=== PATIENT | male | born 1975 | race Caucasian/White ===

== ENCOUNTER 2016-09-08 17:09 | Emergency (ER) | payer MEDICAID, OTHER ==
[2016-09-08 19:06] VITALS: BP 126/82
[2016-09-08] MEDS ORDERED: Diphtheria,Pertussis(Acell),Tetanus Vaccine 0.5 ML SDV IM ONE (19:41)
--- NOTE | 2016-09-08 19:46 | EDM.PDOC ---
ED HPI Skin/Rash - General Chief Complaint: Laceration Stated Complaint: CUT FINGER Time Seen by Provider: 09/08/16 19:38 Source: Reports: Patient History Limitations: Reports: No limitations - History of Present Illness INITIAL COMMENTS - FREE TEXT/NARRATIVE: History of present illness: [This patient has a left ring finger sustained a small laceration to the tip of his finger. He is tissue loss with intervention of the very tip of his finger. This did not involve his nail. No other injuries and he does not know when his last tetanus was] Review of systems: As per history of present illness and below otherwise all systems reviewed and negative. Past medical history: As per history of present illness and as reviewed below otherwise noncontributory. Surgical history: As per history of present illness and as reviewed below otherwise noncontributory. Social history: No reported history of drug or alcohol abuse. Family history: As per history of present illness and as reviewed below otherwise noncontributory. Physical exam: HEENT: Atraumatic, normocephalic, pupils reactive, negative for conjunctival pallor or scleral icterus, mucous membranes moist, throat clear, neck supple, nontender, trachea midline. Lungs: Clear to auscultation, breath sounds equal bilaterally, chest nontender. Heart: S1S2, regular, negative for clicks, rubs, or JVD. Abdomen: Soft, nondistended, nontender. Negative for masses or hepatosplenomegaly. Negative for costovertebral tenderness. Pelvis: Stable nontender. Genitourinary: Deferred. Rectal: Deferred. Extremities: He has loss of Dorian very tip of his left ring finger with complete loss of tissue. This does not involve his nail Neuro: Awake, alert, oriented. Cranial nerves II through XII unremarkable. Cerebellum unremarkable. Motor and sensory unremarkable throughout. Exam nonfocal. Diagnostics: [] Therapeutics: [This was dressed with antibiotic ointment and a Band-Aid.] Impression: [A bulging of the tip of the left ring finger] Plan: [This can be treated with antibiotic ointment and bandaid until it heals up.] Definitive disposition and diagnosis as appropriate pending reevaluation and review of above. - Related Data Allergies Allergy/AdvReac Type Severity Reaction Status Date / Time No Known Allergies Allergy Verified 09/08/16 19:06 Home Meds: Ambulatory Orders Medication Instructions Recorded Confirmed FLUoxetine [PROzac] 40 mg PO DAILY 01/15/15 09/08/16 Multivitamin with Minerals 1 tab PO DAILY 11/16/15 09/08/16 [Multiple Vitamin] busPIRone [Buspar] 10 mg PO BID 02/18/16 09/08/16 traZODone 50 mg PO BEDTIME 02/18/16 09/08/16 Past Medical History - Past Health History Medical/Surgical History: Denies Medical/Surgical History HEENT History: Reports: Allergic rhinitis, Sinusitis Other HEENT History: frequent strep throat and ear infections Cardiovascular History: Reports: Other (see below) Other Cardiovascular History: recurrent chest pains with negative stress test Gastrointestinal History: Reports: Chronic diarrhea, Hemorrhoids, Irritable bowel syndrome Musculoskeletal History: Reports: Back pain, chronic, Fracture, Other (see below ) Other Musculoskeletal History: carpal tunnel release bilateral. fingers, plantar facitis Psychiatric History: Reports: Anxiety, Depression, Panic attack Endocrine/Metabolic History: Reports: Obesity/BMI 30+ - Infectious Disease History Infectious Disease History: Reports: Chicken pox - Past Surgical History HEENT Surgical History: Reports: Oral surgery Cardiovascular Surgical History: Reports: None GI Surgical History: Reports: None Endocrine Surgical History: Reports: None Musculoskeletal Surgical History: Reports: Carpal tunnel Social & Family History - Family History Family Medical History: Unobtainable - Tobacco Use Smoking Status *Q: Never Smoker Years of Tobacco use: 15 Packs/Tins Daily: 4 Used Tobacco, but Quit: Yes Month Tobacco Last Used: November Second Hand Smoke Exposure: No - Alcohol Use Days Per Week of Alcohol Use: 0 - Recreational Drug Use Recreational Drug Use: No Drug Use in Last 12 Months: No Recreational Drug Type: Reports: Marijuana/Hashish Recreational Drug Use Frequency: Weekly ED ROS GENERAL - Review of Systems Review Of Systems: ROS reveals no pertinent complaints other than HPI. ED EXAM, SKIN/RASH Exam: See Below Course - Vital Signs Last Recorded V/S: Last Vital Signs Temp 37 C 09/08/16 19:03 Pulse 61 09/08/16 19:03 Resp 14 09/08/16 19:03 BP 126/82 09/08/16 19:03 Pulse Ox 95 09/08/16 19:03 - Orders/Labs/Meds Orders: Active Orders 24 hr Category Date Time Status Vaccines to be Administered [RC] PER UNIT ROUTINE Care 09/08/16 19:41 Ordered Diphth,Pertuss(Acell),Tet Vac [Adacel] Med 09/08/16 19:41 Once 0.5 ml IM .ONCE ONE Departure - Departure Time of Disposition: 19:44 Disposition: Home, Self-Care 01 Condition: good Clinical Impression: Avulsion of skin of finger Qualifiers: Encounter type: initial encounter Qualified Code(s): S61.209A - Unspecified open wound of unspecified finger without damage to nail, initial encounter Forms: ED Department Discharge Additional Instructions: Continue to use antibiotic ointment and Band-Aids until this visit. Followup with his doctor if any problems. - My Orders Last 24 Hours: My Active Orders 09/08/16 19:41 Vaccines to be Administered [RC] PER UNIT ROUTINE Diphth,Pertuss(Acell),Tet Vac [Adacel] 0.5 ml IM .ONCE ONE - Assessment/Plan Last 24 Hours: My Active Orders 09/08/16 19:41 Vaccines to be Administered [RC] PER UNIT ROUTINE Diphth,Pertuss(Acell),Tet Vac [Adacel] 0.5 ml IM .ONCE ONE
== END 2016-09-08 19:58 | disposition home or self-care (01) ==
LOC: JP.ED 17:09
DX: S61.205A Unspecified open wound of left ring finger without damage to nail, initial encounter (principal); F41.0 Panic disorder [episodic paroxysmal anxiety]; F32.9 Major depressive disorder, single episode, unspecified; E66.9 Obesity, unspecified; Z68.36 Body mass index [BMI] 36.0-36.9, adult; Z23 Encounter for immunization; Z98.890 Other specified postprocedural states; Z79.899 Other long term (current) drug therapy; X58.XXXA Exposure to other specified factors, initial encounter
CPT/HCPCS: 90471; 90715; 99282; 99283-25

== ENCOUNTER 2016-11-06 16:36 | Emergency (ER) | payer MEDICAID ==
[2016-11-06 16:43] VITALS: BP 134/77
[2016-11-06] MEDS ORDERED: Silver Nitrate Applicator Each TOP ONE (16:59)
--- NOTE | 2016-11-06 17:02 | EDM.PDOC ---
ED HPI GENERAL MEDICAL PROBLEM - General Chief Complaint: Laceration Stated Complaint: CUT FINGER IN ROUTER Time Seen by Provider: 11/06/16 16:54 Source of Information: Reports: Patient, RN Notes Reviewed History Limitations: Reports: No Limitations - History of Present Illness INITIAL COMMENTS - FREE TEXT/NARRATIVE: 41-year-old gentleman presents emergency department today complaint of laceration to to his middle finger on his left hand, he accidentally was cut by a route or on the distal tip of the finger tetanus was last year Left Hand Pain Score (Numeric/FACES): 10 - Related Data Allergies Allergy/AdvReac Type Severity Reaction Status Date / Time No Known Allergies Allergy Verified 09/08/16 19:06 Home Meds: Home Meds FLUoxetine [PROzac] 40 mg PO DAILY 01/15/15 [History] Multivitamin with Minerals [Multiple Vitamin] 1 tab PO DAILY 11/16/15 [History] busPIRone [Buspar] 10 mg PO BID 02/18/16 [History] traZODone 50 mg PO BEDTIME 02/18/16 [History] Past Medical History HEENT History: Reports: Allergic Rhinitis, Sinusitis Other HEENT History: frequent strep throat and ear infections Cardiovascular History: Reports: Other (See Below) Other Cardiovascular History: recurrent chest pains with negative stress test Gastrointestinal History: Reports: Chronic Diarrhea, Hemorrhoids, Irritable Bowel Syndrome Musculoskeletal History: Reports: Back Pain, Chronic, Fracture, Other (See Below ) Other Musculoskeletal History: carpal tunnel release bilateral. fingers, plantar facitis Psychiatric History: Reports: Anxiety, Depression, Panic Attack Endocrine/Metabolic History: Reports: Obesity/BMI 30+ - Infectious Disease History Infectious Disease History: Reports: Chicken Pox - Past Surgical History HEENT Surgical History: Reports: Oral Surgery Endocrine Surgical History: Reports: None Musculoskeletal Surgical History: Reports: Carpal Tunnel Social & Family History - Family History Family Medical History: Unobtainable - Tobacco Use Smoking Status *Q: Never Smoker Years of Tobacco use: 15 Packs/Tins Daily: 4 Used Tobacco, but Quit: Yes Month Tobacco Last Used: November Second Hand Smoke Exposure: No - Caffeine Use Caffeine Use: Reports: None - Alcohol Use Days Per Week of Alcohol Use: 0 - Recreational Drug Use Recreational Drug Use: No Drug Use in Last 12 Months: No Recreational Drug Type: Reports: Marijuana/Hashish Recreational Drug Use Frequency: Weekly ED ROS GENERAL - Review of Systems Review Of Systems: See Below Musculoskeletal: Reports: Other (Finger pain) Skin: Reports: Wound (Wound) ED EXAM, SKIN/RASH Exam: See Below Text/Narrative:: Examination of the right hand he has full range of motion of all digits radial pulses 2+ there is a portion of nail and skin missing on the distal aspect of digit #3 left hand sensation is intact Course - Vital Signs Last Recorded V/S: Last Vital Signs Temp 98.2 F 11/06/16 16:42 Pulse 81 11/06/16 16:42 Resp 16 11/06/16 16:42 BP 134/77 11/06/16 16:42 Pulse Ox 99 11/06/16 16:42 - Orders/Labs/Meds Orders: Active Orders 24 hr Category Date Time Status Bacitracin [Bacitracin Oint 1 GM] Med 11/06/16 17:50 Once 1 dose TOP ONETIME ONE Meds: Medications Discontinued Medications Generic Name Dose Route Start Last Admin Trade Name Freq PRN Reason Stop Dose Admin Lidocaine HCl 5 ml 11/06/16 16:52 11/06/16 17:03 Xylocaine-Mpf 1% INJECT 11/06/16 16:53 5 ml ONETIME ONE Administration Silver Nitrate 1 each 11/06/16 16:59 11/06/16 17:03 Silver Nitrate TOP 11/06/16 17:00 1 each ONETIME ONE Administration Departure - Departure Time of Disposition: 17:52 Disposition: Home, Self-Care 01 Condition: good (No) Clinical Impression: Avulsion of skin of finger Qualifiers: Encounter type: initial encounter Qualified Code(s): S61.209A - Unspecified open wound of unspecified finger without damage to nail, initial encounter - Discharge Information Forms: ED Department Discharge Additional Instructions: Please followup with your primary care provider in 3-5 days if not better, please call return to the emergency department with worsening of symptoms. - My Orders Last 24 Hours: My Active Orders 11/06/16 17:50 Bacitracin [Bacitracin Oint 1 GM] 1 dose TOP ONETIME ONE - Assessment/Plan Last 24 Hours: My Active Orders 11/06/16 17:50 Bacitracin [Bacitracin Oint 1 GM] 1 dose TOP ONETIME ONE Plan: Assessment Acuity = acute Site and laterality = finger laceration digit #3 distal tip left hand Etiology = secondary to trauma with a woodworking router Manifestations = none Location of injury = home Lab values = none Plan Wound was cleansed with copious amounts of Hibiclens and tap water wound was still oozing this was controlled with silver nitrate wound was then dressed with bacitracin have him follow up with his primary care as needed tetanus was within last year Patient was in agreement with the plan all questions were answered, they were instructed to return to the emergency department or call for worsening symptoms. This note was dictated using [employer] voice recognition software please call with any questions.
[2016-11-06] MEDS ORDERED: Bacitracin Oint 1 GM U/D Packet TOP ONE (17:50)
== END 2016-11-06 18:03 | disposition home or self-care (01) ==
LOC: JP.ED 16:36
DX: S61.203A Unspecified open wound of left middle finger without damage to nail, initial encounter (principal); Y29.XXXA Contact with blunt object, undetermined intent, initial encounter
CPT/HCPCS: 99282; 99283

== ENCOUNTER 2019-03-08 06:12 | Day surgery (SDC) | payer MEDICAID ==
[2019-03-08] MEDS ORDERED: Sodium Chloride 0.9% 1,000 ML IV SCH (07:00)
[2019-03-08] MEDS ORDERED: fentaNYL 100 MCG/2 ML SDV ONE (07:50)
[2019-03-08] MEDS ORDERED: Midazolam 1 MG/ML 2 ML SDV ONE (07:50)
[2019-03-08] MEDS ORDERED: Propofol 200 MG/20 ML SDV ONE (07:50)
[2019-03-08 08:57] VITALS: PULSE 64
[2019-03-08 08:58] VITALS: BP 99/71
--- NOTE | 2019-03-09 07:43 | OR ---
DATE OF PROCEDURE: 03/08/2019 SURGEON: Ayan Crenshaw MD PROCEDURE: Colonoscopy. FINDINGS: Normal colonoscopy. PREOPERATIVE DIAGNOSIS: Screening colonoscopy/history of colon polyps. POSTOPERATIVE DIAGNOSIS: Screening colonoscopy/history of colon polyps. RISKS: Risks, benefits, alternatives, and limitations including, but not limited to infection, bleeding, and perforation were explained to the patient, and he wished to proceed. PROCEDURE IN DETAIL: The patient was placed in left lateral decubitus position. Digital rectal exam was performed without abnormality. The scope was introduced and advanced atraumatically to the ileocecal valve. The scope was brought back through the ascending, transverse, descending colon, and retroflexed. No evidence of old or new blood. No masses. No polyps. No evidence of colitis or abnormality. No abnormalities on retroflexed. The patient tolerated the procedure well. Ayan Crenshaw MD /[id number]
== END 2019-03-08 09:32 | disposition home or self-care (01) ==
LOC: JP.SDS 06:12
PROVIDERS: ATTEND Surgery
DX: Z12.11 Encounter for screening for malignant neoplasm of colon (principal)
CPT/HCPCS: 45378; J2250; J2704; J3010; J7030

== ENCOUNTER 2024-02-07 16:55 | Emergency (ER) | payer BC, MEDICAID ==
[2024-02-07] MEDS ORDERED: Sodium Chloride 0.9% 10 ML Syringe FLUSH PRN (18:10)
[2024-02-07] MEDS: Sodium Chloride 0.9% 1,000 ML IV STA (18:32)
[2024-02-07 18:34] LABS: BASOPHILS ABSOLUTE AUTO 0.07 K/uL (0.00-0.10); BASOPHILS PERCENT AUTO 0.7 % (0.1-1.3); EOSINOPHILS ABSOLUTE AUTO 0.39 K/uL (0.00-0.40); EOSINOPHILS PERCENT AUTO 3.9 % (0.0-5.4); HEMATOCRIT 50.4 % (38.4-49.7); HEMOGLOBIN 17.5 g/dL (12.9-16.9); IMMATURE GRAN ABSOLUTE AUTO 0.03 K/uL (0.00-0.23); IMMATURE GRAN PERCENT AUTO 0.3 % (0.0-0.7); LYMPHOCYTES ABSOLUTE AUTO 3.77 K/uL (0.8-3.3); LYMPHOCYTES PERCENT AUTO 37.4 % (11.4-47.7); MEAN CORPUSCULAR HEMOGLOBIN 30.8 pg (31.6-35.5); MEAN CORPUSCULAR HGB CONC 34.7 g/dL (31.6-35.5); MEAN CORPUSCULAR VOLUME 88.6 fL (81.4-99.0); MONOCYTES ABSOLUTE AUTO 0.77 K/uL (0.20-0.90); MONOCYTES PERCENT AUTO 7.6 % (3.3-12.6); NEUTROPHILS ABSOLUTE AUTO 5.05 K/uL (1.0-7.6); NEUTROPHILS PERCENT AUTO 50.1 % (40.0-78.1); PLATELET COUNT,PLT 199 K/uL (130-375); RED BLOOD CELL COUNT 5.69 M/uL (4.14-5.76); WHITE BLOOD CELL COUNT,WBC 10.1 K/uL (3.2-11.0)
[2024-02-07 19:09] LABS: A/G RATIO 0.9 (1.2-2.2); ALANINE AMINOTRANSFERASE,ALT 49 U/L (12-78); ALBUMIN 3.4 g/dL (3.4-5.0); ALKALINE PHOSPHATASE 148 U/L (46-116); ASPARTATE AMNIOTRANSFERASE,AST 35 U/L (15-37); BILIRUBIN TOTAL 0.6 mg/dL (0.2-1.0); BLOOD UREA NITROGEN,BUN 11 mg/dL (7-18); CALCIUM 8.6 mg/dL (8.5-10.1); CARBON DIOXIDE,CO2 27 mmol/L (21-32); CHLORIDE,CL 101 mmol/L (100-108); CREATININE 1.1 mg/dL (0.8-1.3); EST CRCL DRUG DOSING (CG) 83.46 mL/min; ESTIMATED GFR 83 mL/min (>60); GLUCOSE RANDOM 82 mg/dL (74-106); POTASSIUM,K 4.2 mmol/L (3.6-5.2); PROTEIN TOTAL,TP 7.2 g/dL (6.4-8.2); SODIUM,NA 137 mmol/L (140-148); TROPONIN I HIGH SENSITIVITY 4.2 pg/mL (<=60.3)
[2024-02-07 19:10] LABS: APPEARANCE,URINE CLEAR (CLEAR); BILIRUBIN,URINE NEGATIVE (NEGATIVE); COLOR,URINE YELLOW (YELLOW); GLUCOSE,URINE NEGATIVE (NEGATIVE); KETONES,URINE NEGATIVE (NEGATIVE); LEUKOCYTE ESTERASE,URINE NEGATIVE (NEGATIVE); NITRITE,URINE NEGATIVE (NEGATIVE); OCCULT BLOOD,URINE NEGATIVE (NEGATIVE); PROTEIN,URINE NEGATIVE (NEGATIVE); UROBILINOGEN,URINE 0.2 EU/dL (0.2-1.0)
[2024-02-07 19:10] LABS: ANION GAP 13.2 mmol/L (5.0-14.0)
[2024-02-07] MEDS: Sodium Chloride 0.9% 100 ML IV ONE (19:15)
[2024-02-07] MEDS: Sodium Chloride 0.9% 10 ML Syringe FLUSH ONE (19:15)
[2024-02-07] MEDS: Iopamidol 612 MG/ML 100 ML Bottle IV ONE (19:15)
[2024-02-07 19:26] LABS: AMORPHOUS SEDIMENT,URINE RARE; BACTERIA,URINE NOT SEEN; EPITHELIAL CELLS,URINE RARE; MUCUS,URINE NOT SEEN; RBC,URINE NOT SEEN (0-5); WBC,URINE NOT SEEN (0-5)
[2024-02-07 19:49] VITALS: BP 118/83; PULSE 59
== END 2024-02-07 20:20 | disposition home or self-care (01) ==
LOC: JP.ED 16:55
DX: K76.0 Fatty (change of) liver, not elsewhere classified (principal); E66.9 Obesity, unspecified; Z68.41 Body mass index [BMI] 40.0-44.9, adult
CPT/HCPCS: 36415; 74177; 80053; 81001; 83605; 83690; 84484; 85025; 99284; J3490; J7030; Q9967